=== PATIENT | female | born 1935 | race Caucasian/White ===

== ENCOUNTER 2018-03-18 08:00 | Outpatient (CLI) | payer MEDICARE, OTHER ==
[2018-03-18 19:40] LABS: CALCIUM 8.7 mg/dL (8.5-10.3); CREATININE 0.7 mg/dL (0.4-1.0)
== END 2018-03-18 23:59 | disposition home or self-care (01) ==
LOC: LAB.R 08:00
DX: R79.89 Other specified abnormal findings of blood chemistry (principal)
CPT/HCPCS: 80048

== ENCOUNTER 2018-03-29 14:40 | Outpatient (CLI) | END 2018-03-29 14:41 | disposition home or self-care (01) ==

== ENCOUNTER 2018-05-07 17:45 | Outpatient (CLI) | payer MEDICARE ==
[2018-05-07 17:13] LABS: ALBUMIN 2.9 g/dL (3.2-5.5); ALBUMIN/GLOBULIN RATIO 0.9 (1.0-2.2); BILIRUBIN,TOTAL 2.6 mg/dL (0.2-1.0); CALCIUM 8.5 mg/dL (8.5-10.3); CREATININE 0.6 mg/dL (0.4-1.0); TOTAL PROTEIN 6.2 g/dL (6.7-8.2)
== END 2018-05-07 17:46 | disposition home or self-care (01) ==
LOC: LAB.R 17:45
DX: K74.69 Other cirrhosis of liver (principal)
CPT/HCPCS: 80053; 82140

== ENCOUNTER 2018-06-13 20:53 | Outpatient (CLI) | payer MEDICARE, MEDICAID | END 2018-06-13 20:54 | disposition critical access hospital (66) | LOC: EMS 20:53 | PROVIDERS: ATTEND Surgery | DX: S09.90XA Unspecified injury of head, initial encounter (principal); M54.2 Cervicalgia; R07.9 Chest pain, unspecified; W18.30XA Fall on same level, unspecified, initial encounter; Y92.121 Bathroom in nursing home as the place of occurrence of the external cause | CPT/HCPCS: A0425; A0427 ==

== ENCOUNTER 2018-06-13 21:00 | Emergency (ER) | payer MEDICARE ==
[2018-06-13 21:24] LABS: BASOPHILS % (AUTO) 0.4 %; EOSINOPHILS # (AUTO) 0.2 10^3/uL (0.0-0.7); EOSINOPHILS % (AUTO) 2.4 %; HGB - HEMOGLOBIN 14.2 g/dL (12.0-16.0); LYMPHOCYTES # (AUTO) 1.8 10^3/uL (1.5-3.5); LYMPHOCYTES % (AUTO) 22.4 %; MEAN CORPUSCULAR HEMOGLOBIN 31.4 pg (27.0-31.0); MEAN CORPUSCULAR HGB CONC 32.6 g/dL (32.0-36.0); MEAN CORPUSCULAR VOLUME 96.2 fL (81.0-99.0); MEAN PLATELET VOLUME 7.9 fL (7.9-10.8); MONOCYTES % (AUTO) 12.5 %; NEUTROPHILS % (AUTO) 62.3 %; PLT - PLATELET COUNT 225 10^3/uL (130-450); RED BLOOD COUNT 4.53 10^6/uL (4.20-5.40)
[2018-06-13 21:30] LABS: INR 3.8 (0.8-1.2); PT - PROTHROMBIN TIME 40.4 secs (9.9-12.6)
[2018-06-13 21:31] LABS: CALCIUM 8.8 mg/dL (8.5-10.3); CREATININE 0.7 mg/dL (0.4-1.0)
[2018-06-13] MEDS ORDERED: ACETAMINOPHEN 500 MG TABLET PO STA (21:47)
--- NOTE | 2018-06-13 21:53 | XRAY Report ---
Reason: hip pain Procedure Date: 06/13/2018 Accession Number: [id number] / [id number] Procedure: XR - Hip w/Pelvis 2-3V RT CPT Code: FULL RESULT: EXAM: RIGHT HIP AND PELVIS RADIOGRAPHY EXAM DATE: 06/13/2018 09:42 PM. HISTORY: Hip pain. COMPARISONS: None. TECHNIQUE: 1 view of the pelvis and 1 view of the hip. FINDINGS: Bones: Prior lag screw fixation of the left proximal femur. No acute fracture. Joints: Bilateral joint space narrowing, more prominent on the right with osteophytes, sclerosis and subcortical cysts. Soft Tissues: Normal. No soft tissue swelling. IMPRESSION: 1. No acute fracture or dislocation. Prior lag screw fixation of the left proximal femur. 2. Advanced bilateral hip osteoarthritis, worse on the right. RAD[facility]
--- NOTE | 2018-06-13 22:07 | CT Report ---
Reason: Fall, Head injury on coumadin Procedure Date: 06/13/2018 Accession Number: [id number] / [id number] Procedure: CT - Cervical Spine W/O CPT Code: FULL RESULT: EXAM: CT CERVICAL SPINE WITHOUT CONTRAST DATE: 06/13/2018 09:44 PM. HISTORY: Fall, head injury on coumadin. COMPARISONS: None. TECHNIQUE: Thin-section axial images were acquired of the cervical spine without contrast. Post-processing: Coronal and sagittal reformats. Other: None. In accordance with CT protocol optimization, one or more of the following dose reduction techniques were utilized for this exam: automated exposure control, adjustment of mA and/or KV based on patient size, or use of iterative reconstructive technique. FINDINGS: Alignment: No scoliosis or spondylolisthesis. Bones: No fracture or bone lesion. Interspace Levels/Facets: C1-C2: Unremarkable. C2-C3: Facet hypertrophy without significant stenosis. C3-C4: Disk space narrowing and facet hypertrophy without significant stenosis. C4-C5: Disk space narrowing with minimal posterior osteophytes and facet hypertrophy without significant stenosis. C5-C6: Minimal posterior osteophytes with minimal bilateral foraminal stenosis. C6-C7: Disk space narrowing with facet hypertrophy without significant stenosis. C7-T1: Facet hypertrophy without significant stenosis. Other: Left-sided pacemaker wires. Atherosclerosis. IMPRESSION: Multilevel degenerative disk disease without evidence of cervical spine fracture. [facility]
[2018-06-13] MEDS ORDERED: PHYTONADIONE INJ (ADULT) 10 MG in SODIUM CHLORIDE 0.9% 50 ML IV ONE (22:08)
[2018-06-13] MEDS ORDERED: PROTHROMBIN COMPLEX CONC 500 UNIT VIAL IVP STA (22:09)
--- NOTE | 2018-06-13 22:09 | CT Report ---
Reason: Fall, Head injury on coumadin Procedure Date: 06/13/2018 Accession Number: [id number] / [id number] Procedure: CT - Head W/O CPT Code: FULL RESULT: EXAM: CT HEAD EXAM DATE: 06/13/2018 09:43 PM. CLINICAL HISTORY: Fall, head injury on coumadin. COMPARISON: None. TECHNIQUE: Multiaxial CT images were obtained from the foramen magnum to the vertex. Reformats: Coronal IV contrast: None. In accordance with CT protocol optimization, one or more of the following dose reduction techniques were utilized for this exam: automated exposure control, adjustment of mA and/or KV based on patient size, or use of iterative reconstructive technique. FINDINGS: Parenchyma: Diffuse cerebral atrophy with moderate low density in the deep white matter. Old left occipital infarct. No intra-axial hemorrhage. Extraaxial Spaces: Cerebral atrophy with right parietal hyperdensity measuring 3 mm (2, 29; 5, 25). Ventricles: Normal in size and position. Sinuses and Orbits: Imaged paranasal sinuses, orbits, and mastoids show no significant abnormality. Bones: No evidence of fracture or calvarial defect. Other: Left parietal scalp hematoma. Status post bilateral lens surgery. IMPRESSION: 1. Amorphous slight hyperdensity in the right parietal extra-axial space, consistent with a small area of subarachnoid hemorrhage. 2. Left parietal scalp hematoma. 3. 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 RAD[facility] The above findings were discussed with Leroy Cabrera by Dr. Jarrett Hernandez at 22:08 hrs on 06/13/18.
--- NOTE | 2018-06-13 22:36 | ED Physician Documentation ---
PD HPI HEAD INJURY - Stated complaint Stated Complaint: GLF - HEADACHE - Chief complaint Chief Complaint: Trauma Hd/Nk - History obtained from History obtained from: Family, EMS - Additional information Additional information: 82-year-old female was brought to the emergency department for evaluation of a head injury which occurred just prior to arrival. The patient slipped and fell and struck the back of her head. No reported loss of consciousness or laceration. No injury to her chest, abdomen or extremities. Symptoms are described as moderate. The patient is on Coumadin. No other associated symptoms. Symptoms are described as moderate Review of Systems Unable to obtain: Dementia, Other (Patient is able to give some information but the history is limited secondary to her dementia) Constitutional: denies: Fever Cardiac: denies: Chest pain / pressure, Palpitations Musculoskeletal: reports: Neck pain Neurologic: reports: Headache, Head injury PD PAST MEDICAL HISTORY - Past Medical History Past Medical History: Yes Cardiovascular: Congestive heart failure, Hypertension, High cholesterol, Coronary artery disease, Deep vein thrombosis, Atrial fibrillation Neuro: Alzhiemer's, Dementia Endocrine/Autoimmune: HyPOthyroidism GI: Cirrhosis Psych: Depression - Allergies Allergies/Adverse Reactions: Allergies Allergy/AdvReac Type Severity Reaction Status Date / Time bumetanide Allergy Unknown Verified 06/13/18 21:15 carisoprodol Allergy Unknown Verified 06/13/18 21:15 digoxin Allergy Unknown Verified 06/13/18 21:15 flecainide Allergy Unknown Verified 06/13/18 21:15 ibuprofen Allergy Unknown Verified 06/13/18 21:15 lactose Allergy Unknown Verified 06/13/18 21:15 Penicillins Allergy Unknown Verified 06/13/18 21:15 quinidine Allergy Unknown Verified 06/13/18 21:15 Quinolones Allergy Unknown Verified 06/13/18 21:15 Sulfa (Sulfonamide Allergy Unknown Verified 06/13/18 21:15 Antibiotics) verapamil Allergy Unknown Verified 06/13/18 21:15 - Social History Does the pt smoke?: No Smoking Status: Never smoker Does the pt drink ETOH?: No Does the pt have substance abuse?: No - Immunizations Immunizations are current?: No Immunizations: TDAP >10years/unknown - POLST Patient has POLST: Yes PD ED PE NORMAL - General General: Other (The patient is alert and oriented and following commands) - HEENT HEENT: Other (The patient has a hematoma on the back of the head, there is no laceration or active bleeding. No crepitus) - Neck Neck: Other (The patient is in a cervical collar and unable to be cleared secondary to her age, dementia and injury) - Cardiac Cardiac: Other (Irregular rhythm) - Respiratory Respiratory: No respiratory distress - Abdomen Abdomen: Soft, Non tender - Derm Derm: Normal color - Extremities Extremities: No deformity, No tenderness to palpate - Neuro Neuro: No motor deficit, Normal speech, Other (The patient is alert, follows commands and has no acute focal deficit) Eye Opening: Spontaneous Motor: Obeys Commands Verbal: Confused GCS Score: 14 - Psych Psych: Normal affect Results - Vitals Vitals: Vital Signs - 24 hr 06/13/18 06/13/18 06/13/18 21:00 22:05 22:39 Temperature 37.2 C Heart Rate 91 95 100 Respiratory 16 25 H 26 H Rate Blood Pressure 144/96 H 157/107 H 154/94 H O2 Saturation 93 95 96 06/13/18 06/14/18 06/14/18 23:36 01:05 01:10 Temperature 36.8 C 36.8 C Heart Rate 100 100 95 Respiratory 21 24 24 Rate Blood Pressure 141/93 H 131/90 H 136/76 H O2 Saturation 93 06/14/18 06/14/18 06/14/18 01:21 01:30 01:31 Temperature 36.8 C 36.7 C Heart Rate 95 97 90 Respiratory 21 21 22 Rate Blood Pressure 129/83 H 122/87 H 123/87 H O2 Saturation 97 06/14/18 06/14/18 02:30 03:27 Temperature 36.7 C Heart Rate 101 H 90 Respiratory 24 19 Rate Blood Pressure 121/79 136/86 H O2 Saturation 100 96 Oxygen O2 Source Room air - Labs Labs: Laboratory Tests 06/13/18 06/13/18 06/13/18 21:10 21:10 21:10 WBC 8.0 RBC 4.53 Hgb 14.2 Hct 43.5 MCV 96.2 MCH 31.4 H MCHC 32.6 RDW 20.0 H Plt Count 225 MPV 7.9 Neut # (Auto) 5.0 Lymph # (Auto) 1.8 [place] # (Auto) 1.0 Eos # (Auto) 0.2 Baso # (Auto) 0.0 Absolute Nucleated RBC 0.01 Nucleated RBC % 0.2 PT 40.4 H INR 3.8 H APTT 43.2 H Sodium 136 Potassium 3.6 Chloride 100 L Carbon Dioxide 29 Anion Gap 7.0 BUN 10 Creatinine 0.7 Estimated GFR (MDRD) 80 L Glucose 112 H Calcium 8.8 Blood Type Blood Type Recheck 06/13/18 06/14/18 06/14/18 21:10 00:10 02:50 WBC RBC Hgb Hct MCV MCH MCHC RDW Plt Count MPV Neut # (Auto) Lymph # (Auto) [place] # (Auto) Eos # (Auto) Baso # (Auto) Absolute Nucleated RBC Nucleated RBC % PT 24.6 H INR 2.2 H APTT 37.1 H Sodium Potassium Chloride Carbon Dioxide Anion Gap BUN Creatinine Estimated GFR (MDRD) Glucose Calcium Blood Type A POSITIVE Blood Type Recheck A POSITIVE - Rads (name of study) CT HEAD Radiology: Final report received (Addendum to compare study 11/13/2017 exam. Prior exam demonstrated small hyperdense right parietal extra-axial focus concerning for subarachnoid hemorrhage. On current study there is a less prominent 4 mm hyperdense focus in this location ( series 6, image 24) which may represent calcification or decreased small focus of hemorrhage. There is no new abnormality. ) PD MEDICAL DECISION MAKING - ED course ED course: 22:52 PM The case was discussed with neurosurgery Dr. Ambrocio at [facility]. The patient's past medical history, current medications, lab findings, presentation and CT findings were discussed. He independently reviewed the CT scan. Since, the patient's subarachnoid is small he recommends reversing the patient's anticoagulation and repeating a CT scan in 4 hours. The patient's Repeat CT scan 4 hours later showed improvement of the subarachnoid hemorrhage. The patient's Coumadin was corrected with vitamin K, K Centra and FFP. Per the neurosurgery service the patient should be discharged back to her facility and follow-up with primary care. I recommended that the patient stop her anticoagulation, the patient should follow-up with primary care for reevaluation and for them to determine whether or not the patient should restart anticoagulation at a later date. The patient will be discharged back to her halfway facility. The patient is in stable condition and appropriate for discharge at this time. - Critical Care Time(min): 35 Time Includes: Direct patient care, Review records, Reassess patient, Document care, Coordinate care, Medical consult, Family consult for tx dec Data interpretation: Labs - Sepsis Event Vital Signs: Vital Signs - 24 hr 06/13/18 06/13/18 06/13/18 21:00 22:05 22:39 Temperature 37.2 C Heart Rate 91 95 100 Respiratory 16 25 H 26 H Rate Blood Pressure 144/96 H 157/107 H 154/94 H O2 Saturation 93 95 96 06/13/18 06/14/18 06/14/18 23:36 01:05 01:10 Temperature 36.8 C 36.8 C Heart Rate 100 100 95 Respiratory 21 24 24 Rate Blood Pressure 141/93 H 131/90 H 136/76 H O2 Saturation 93 06/14/18 06/14/18 06/14/18 01:21 01:30 01:31 Temperature 36.8 C 36.7 C Heart Rate 95 97 90 Respiratory 21 21 22 Rate Blood Pressure 129/83 H 122/87 H 123/87 H O2 Saturation 97 06/14/18 06/14/18 02:30 03:27 Temperature 36.7 C Heart Rate 101 H 90 Respiratory 24 19 Rate Blood Pressure 121/79 136/86 H O2 Saturation 100 96 Oxygen O2 Source Room air Departure - Departure Disposition: 01 Home, Self Care Clinical Impression: SAH (subarachnoid hemorrhage) Scalp hematoma Qualifiers: Encounter type: initial encounter Qualified Code(s): S00.03XA - Contusion of scalp, initial encounter Fall Qualifiers: Encounter type: initial encounter Qualified Code(s): W19.XXXA - Unspecified fall, initial encounter Dementia Qualifiers: Dementia type: unspecified type Dementia behavioral disturbance: with behavioral disturbance Qualified Code(s): F03.91 - Unspecified dementia with behavioral disturbance Condition: Fair Instructions: Hemorrhage Intracranial Ch Comments: Please stop taking your Coumadin. Please follow-up with your primary care doctor in 1-2 days for recheck. Please ask your primary care doctor to reevaluate when you should start anticoagulants again or if you should start anticoagulants again. Please return to the emergency department immediately for worsening symptoms or any concerns
[2018-06-14 03:03] LABS: INR 2.2 (0.8-1.2); PT - PROTHROMBIN TIME 24.6 secs (9.9-12.6)
--- NOTE | 2018-06-14 03:33 | CT Report ---
Reason: head injury Procedure Date: 06/14/2018 Accession Number: [id number] / [id number] Procedure: CT - Head W/O CPT Code: FULL RESULT: EXAM: CT HEAD EXAM DATE: 06/14/2018 03:14 AM. CLINICAL HISTORY: Head injury. COMPARISON: None. TECHNIQUE: Multiaxial CT images were obtained from the foramen magnum to the vertex. Reformats: Sagittal and coronal. IV contrast: None. In accordance with CT protocol optimization, one or more of the following dose reduction techniques were utilized for this exam: automated exposure control, adjustment of mA and/or KV based on patient size, or use of iterative reconstructive technique. FINDINGS: Parenchyma: No intraparenchymal hemorrhage. No evidence of mass, midline shift, or CT findings of acute infarction. There are areas of low density involving white matter bilateral cerebral hemispheres. There is a low-density band extending to cortex in the left occipital lobe. Extraaxial Spaces: Diffuse prominence. No subdural or epidural collections identified. Ventricles: Mild enlargement. No mass-effect. Sinuses and Orbits: Imaged paranasal sinuses, orbits, and mastoids show no significant abnormality. Bones: No evidence of fracture or calvarial defect. Other: There is a moderate sized left parietal scalp hematoma.. IMPRESSION: No acute intracranial process. [facility] ADDENDUM: 06/14/18 03:57 Addendum to compare study 11/13/2017 exam. Prior exam demonstrated small hyperdense right parietal extra-axial focus concerning for subarachnoid hemorrhage. On current study there is a less prominent 4 mm hyperdense focus in this location ( series 6, image 24) which may represent calcification or decreased small focus of hemorrhage. There is no new abnormality. Above results discussed with Dr. Cabrera at time of addendum.
[2018-06-14 04:16] VITALS: BP 132/74
== END 2018-06-14 04:55 | disposition home or self-care (01) ==
LOC: EDUNIT# → ED 21:00
DX: S00.03XA Contusion of scalp, initial encounter (principal); S06.6X9A Traumatic subarachnoid hemorrhage with loss of consciousness of unspecified duration, initial encounter; W18.30XA Fall on same level, unspecified, initial encounter; Y92.121 Bathroom in nursing home as the place of occurrence of the external cause; G30.9 Alzheimer's disease, unspecified; F02.80 Dementia in other diseases classified elsewhere, unspecified severity, without behavioral disturbance, psychotic disturbance, mood disturbance, and anxiety; I11.0 Hypertensive heart disease with heart failure; I50.9 Heart failure, unspecified; I25.10 Atherosclerotic heart disease of native coronary artery without angina pectoris; I48.91 Unspecified atrial fibrillation; Z79.01 Long term (current) use of anticoagulants; Z86.718 Personal history of other venous thrombosis and embolism
CPT/HCPCS: 36415; 70450; 72125; 73502; 80048; 85025; 85610; 85730; 86900; 86901; 93005; 96365; 96375; 99284; 99291; A9270; C9132; J7040; P9017

== ENCOUNTER 2018-06-14 04:48 | Outpatient (CLI) | payer MEDICARE, MEDICAID | END 2018-06-14 04:49 | disposition home or self-care (01) | LOC: EMS 04:48 | PROVIDERS: ATTEND Surgery | DX: S06.6X9A Traumatic subarachnoid hemorrhage with loss of consciousness of unspecified duration, initial encounter (principal); W19.XXXA Unspecified fall, initial encounter | CPT/HCPCS: A0425; A0428 ==

== ENCOUNTER → 2018-07-27 | Outpatient (CLI) | payer OTHER, MEDICAID ==
[2018-07-27 13:44] LABS: ALBUMIN 3.3 g/dL (3.2-5.5); ALBUMIN/GLOBULIN RATIO 0.8 (1.0-2.2); BILIRUBIN,TOTAL 2.1 mg/dL (0.2-1.0); CALCIUM 8.7 mg/dL (8.5-10.3); CREATININE 0.4 mg/dL (0.4-1.0); TOTAL PROTEIN 7.6 g/dL (6.7-8.2)
== END ==
LOC: LAB.R 08:00
DX: I44.0 Atrioventricular block, first degree (principal); I48.2 Chronic atrial fibrillation; I25.2 Old myocardial infarction
CPT/HCPCS: 80053

== ENCOUNTER 2018-09-27 10:37 | Outpatient (CLI) | payer MEDICARE, MEDICAID | END 2018-09-27 10:38 | disposition critical access hospital (66) | LOC: EMS 10:37 | PROVIDERS: ATTEND Surgery | DX: R51 Headache (principal); R29.6 Repeated falls | CPT/HCPCS: A0425; A0429 ==

== ENCOUNTER 2018-09-27 10:41 | Emergency (ER) | payer MEDICARE, MEDICAID ==
--- NOTE | 2018-09-27 11:33 | CT Report ---
Reason: LIU hx subdural Procedure Date: 09/27/2018 Accession Number: [id number] / [id number] Procedure: CT - Head W/O CPT Code: FULL RESULT: EXAM: CT HEAD EXAM DATE: 09/27/2018 11:26 AM. CLINICAL HISTORY: Headache, history of subdural. COMPARISON: HEAD W/O 06/14/2018 3:14 AM. TECHNIQUE: Multiaxial CT images were obtained from the foramen magnum to the vertex. Reformats: Sagittal and coronal. IV contrast: None. In accordance with CT protocol optimization, one or more of the following dose reduction techniques were utilized for this exam: automated exposure control, adjustment of mA and/or KV based on patient size, or use of iterative reconstructive technique. FINDINGS: Parenchyma: No acute intraparenchymal hemorrhage. No evidence of mass, midline shift. Blount-white differentiation is distinct. Left occipital lobe distribution encephalomalacia is stable. Extraaxial Spaces: Normal for age. No subdural or epidural collections identified. Ventricles: Normal in size and position. Sinuses and Orbits: Imaged paranasal sinuses, orbits, and mastoids show no significant abnormality. Bones: No evidence of fracture or calvarial defect. Other: None. IMPRESSION: No acute intracranial hemorrhage. RADIA
--- NOTE | 2018-09-27 11:36 | CT Report ---
Reason: FALL, NECK PAIN Procedure Date: 09/27/2018 Accession Number: [id number] / [id number] Procedure: CT - Cervical Spine W/O CPT Code: FULL RESULT: EXAM: CT CERVICAL SPINE WITHOUT CONTRAST DATE: 09/27/2018 11:26 AM. HISTORY: Fall, neck pain. COMPARISONS: HEAD W/O 06/14/2018 3:14 AM. TECHNIQUE: Thin-section axial images were acquired of the cervical spine without contrast. Post-processing: Coronal and sagittal reformats. Other: None. In accordance with CT protocol optimization, one or more of the following dose reduction techniques were utilized for this exam: automated exposure control, adjustment of mA and/or KV based on patient size, or use of iterative reconstructive technique. FINDINGS: Alignment: No scoliosis or spondylolisthesis. Bones: No fracture or bone lesion. Interspace Levels/Facets: There is multilevel loss of disk space height with osteophytosis and multilevel facet arthropathy. Degenerative changes are most pronounced from C4 through C6. Musculature: Normal. No fatty atrophy. Other: The paravertebral and prevertebral soft tissues are unremarkable. The lung apices are clear. IMPRESSION: No acute osseous injury to the cervical spine. RADIA
--- NOTE | 2018-09-27 12:46 | ED Physician Documentation ---
History of Present Illness - Stated complaint Stated Complaint: LIU - Chief complaint Chief Complaint: Neuro - Additonal information Additional information: hx from family 82 f feel in Sept had a subdural on coumadin txed conservatively off coumadin lives in a facility now has had LIU and neck pain since the fall home for the holiday sig stress complaining of inc LIU no new fall no fever no CO exposure Review of Systems Constitutional: denies: Fever, Chills Cardiac: denies: Chest pain / pressure Respiratory: denies: Dyspnea GI: denies: Abdominal Pain Musculoskeletal: reports: Neck pain Neurologic: reports: Headache. denies: Head injury (none new) Endocrine: denies: Easy bruising / bleeding (not any more) Immunocompromised: denies: Immunocompromised PD PAST MEDICAL HISTORY - Past Medical History Cardiovascular: Congestive heart failure, Hypertension, High cholesterol, Coronary artery disease, Deep vein thrombosis, Atrial fibrillation Neuro: Alzhiemer's, Dementia Endocrine/Autoimmune: HyPOthyroidism GI: Cirrhosis Psych: Depression - Present Medications Home Medications: Ambulatory Orders Medication Instructions Recorded Confirmed Furosemide 09/27/18 Lactulose 09/27/18 Levothyroxine Sodium 09/27/18 Loperamide HCl [Loperamide] 09/27/18 09/27/18 Metoprolol Succinate 09/27/18 Sertraline [Zoloft] 09/27/18 - Allergies Allergies/Adverse Reactions: Allergies Allergy/AdvReac Type Severity Reaction Status Date / Time bumetanide Allergy Unknown Verified 09/27/18 10:54 carisoprodol Allergy Unknown Verified 09/27/18 10:54 digoxin Allergy Unknown Verified 09/27/18 10:54 flecainide Allergy Unknown Verified 09/27/18 10:54 ibuprofen Allergy Unknown Verified 09/27/18 10:54 lactose Allergy Unknown Verified 09/27/18 10:54 Penicillins Allergy Unknown Verified 09/27/18 10:54 quinidine Allergy Unknown Verified 09/27/18 10:54 Quinolones Allergy Unknown Verified 09/27/18 10:54 Sulfa (Sulfonamide Allergy Unknown Verified 09/27/18 10:54 Antibiotics) verapamil Allergy Unknown Verified 09/27/18 10:54 - Social History Does the pt smoke?: No Smoking Status: Never smoker Does the pt drink ETOH?: No Does the pt have substance abuse?: No - Immunizations Immunizations are current?: No Immunizations: TDAP >10years/unknown - POLST Patient has POLST: Yes PD ED PE NORMAL - Vitals Vital signs reviewed: Yes - HEENT HEENT: Atraumatic, PERRL - Neck Neck: No: No bony TTP (diffuse TTP) - Cardiac Cardiac: RRR - Respiratory Respiratory: No respiratory distress - Neuro Neuro: product scientist 2-12 intact, No motor deficit, No sensory deficit. No: Alert and oriented X 3 (confused - seem to be baseline ) Eye Opening: Spontaneous Motor: Obeys Commands Verbal: Confused GCS Score: 14 Results - Vitals Vitals: Vital Signs - 24 hr 09/27/18 09/27/18 09/27/18 10:50 12:53 13:25 Temperature 36.8 C 36.6 C 36.5 C Heart Rate 94 78 78 Respiratory 16 17 12 Rate Blood Pressure 115/76 116/74 118/71 O2 Saturation 94 99 100 Oxygen O2 Source Room air - Rads (name of study) CTH Radiology: See rad report (no acute) CT CS Radiology: See rad report (no acute) Departure - Departure Disposition: 01 Home, Self Care Clinical Impression: Neck pain Headache Qualifiers: Headache type: unspecified Headache chronicity pattern: unspecified pattern Intractability: not intractable Qualified Code(s): R51 - Headache Condition: Good Instructions: ED Cephalgia Unspecified Follow-Up: Max James DO [Primary Care Provider] - Comments: Thankfully the CT scans today do not show any new injuries or bleeding. And you history and exam do not indicate a concern for meningitis or sinusitis carbon monoxide or other dangerous cause for the pain. I think it is safe for you to go home. Recommend tylenol as needed for the pain.Follow up with your PMD for a recheck Return if worse over the holidays Discharge Date/Time: 09/27/18 13:25
[2018-09-27] MEDS ORDERED: ACETAMINOPHEN 325 MG TABLET PO STA (12:47)
[2018-09-27 14:11] VITALS: BP 118/71
== END 2018-09-27 13:25 | disposition home or self-care (01) ==
LOC: EDBD → EDUNIT# → ED 10:41
DX: R51 Headache (principal); M54.2 Cervicalgia; I10 Essential (primary) hypertension; I48.91 Unspecified atrial fibrillation
CPT/HCPCS: 70450; 72125; 99283; A9270

== ENCOUNTER 2018-12-17 14:01 | Emergency (ER) | payer MEDICARE, MEDICAID ==
[2018-12-17 14:12] VITALS: BP 111/89
[2018-12-17 16:14] LABS: BASOPHILS # (AUTO) 0.1 10^3/uL (0.0-0.1); BASOPHILS % (AUTO) 0.6 %; EOSINOPHILS # (AUTO) 0.2 10^3/uL (0.0-0.7); EOSINOPHILS % (AUTO) 2.3 %; HGB - HEMOGLOBIN 17.6 g/dL (12.0-16.0); LYMPHOCYTES # (AUTO) 3.1 10^3/uL (1.5-3.5); LYMPHOCYTES % (AUTO) 36.4 %; MEAN CORPUSCULAR HEMOGLOBIN 32.2 pg (27.0-31.0); MEAN CORPUSCULAR HGB CONC 32.6 g/dL (32.0-36.0); MEAN CORPUSCULAR VOLUME 98.9 fL (81.0-99.0); MEAN PLATELET VOLUME 8.3 fL (7.9-10.8); MONOCYTES # (AUTO) 0.8 10^3/uL (0.0-1.0); MONOCYTES % (AUTO) 9.5 %; NEUTROPHILS # (AUTO) 4.4 10^3/uL (1.5-6.6); NEUTROPHILS % (AUTO) 51.2 %; PLT - PLATELET COUNT 203 10^3/uL (130-450); RED BLOOD COUNT 5.45 10^6/uL (4.20-5.40); RED CELL DISTRIBUTION WIDTH 14.9 % (12.0-15.0); WHITE BLOOD COUNT 8.6 x10^3/uL (4.8-10.8)
[2018-12-17 16:32] LABS: ALBUMIN 4.7 g/dL (3.2-5.5); ALBUMIN/GLOBULIN RATIO 1.2 (1.0-2.2); BILIRUBIN,TOTAL 1.3 mg/dL (0.2-1.0); CREATININE 0.8 mg/dL (0.4-1.0); TOTAL PROTEIN 8.5 g/dL (6.7-8.2)
== END 2018-12-17 17:07 | disposition left against medical advice (07) ==
LOC: ED 14:01
DX: R61 Generalized hyperhidrosis (principal); Z53.21 Procedure and treatment not carried out due to patient leaving prior to being seen by health care provider
CPT/HCPCS: 36415; 80053; 83690; 84436; 84443; 84481; 85025

== ENCOUNTER 2019-04-16 13:57 | Emergency (ER) | payer MEDICARE, MEDICAID ==
[2019-04-16] MEDS ORDERED: HYDROcod/ACETAM 5/325 MG TABLET PO STA (14:19)
--- NOTE | 2019-04-16 14:21 | ED Physician Documentation ---
PD HPI MAJOR TRAUMA - Stated complaint Stated Complaint: GLF - Chief complaint Chief Complaint: Trauma Ch/Bk - History obtained from History obtained from: Patient, Family (son) - History of Present Illness Mechanism of injury: Fell (Much of the history is from the son because of some dementia. She had a slip and fall last night without injury but it sounds like as he was pulling her up they felt pop in the ribs on the left and she still has persistent moderate pain there despite taking tramadol which she does daily for her hip. No other injury.) Review of Systems Unable to obtain: Dementia PD PAST MEDICAL HISTORY - Past Medical History Cardiovascular: Congestive heart failure, Hypertension, High cholesterol, Coronary artery disease, Deep vein thrombosis, Atrial fibrillation Neuro: Alzhiemer's, Dementia Endocrine/Autoimmune: HyPOthyroidism GI: Cirrhosis Psych: Depression - Past Surgical History Past Surgical History: Yes - Present Medications Home Medications: Ambulatory Orders Medication Instructions Recorded Confirmed Furosemide 20 mg PO DAILY 09/27/18 Lactulose 1 09/27/18 Loperamide HCl [Loperamide] 09/27/18 09/27/18 Metoprolol Succinate 50 mg PO DAILY 09/27/18 Sertraline [Zoloft] 50 mg PO DAILY 09/27/18 Spironolactone 25 mg PO 12/17/18 12/17/18 Thyroid,Pork [[place] Thyroid] 120 mg PO 12/17/18 12/17/18 Tramadol HCl 50 mg PO 12/17/18 12/17/18 Hydrocodone/Acetaminophen 1 - 2 each PO Q6H PRN #14 tablet 04/16/19 [Hydrocodon-Acetaminophen 5-325] - Allergies Allergies/Adverse Reactions: Allergies Allergy/AdvReac Type Severity Reaction Status Date / Time bumetanide Allergy Unknown Verified 04/16/19 14:04 carisoprodol Allergy Unknown Verified 04/16/19 14:04 digoxin Allergy Unknown Verified 04/16/19 14:04 flecainide Allergy Unknown Verified 04/16/19 14:04 ibuprofen Allergy Unknown Verified 04/16/19 14:04 lactose Allergy Unknown Verified 04/16/19 14:04 Penicillins Allergy Unknown Verified 04/16/19 14:04 quinidine Allergy Unknown Verified 04/16/19 14:04 Quinolones Allergy Unknown Verified 04/16/19 14:04 Sulfa (Sulfonamide Allergy Unknown Verified 04/16/19 14:04 Antibiotics) verapamil Allergy Unknown Verified 04/16/19 14:04 - Social History Does the pt smoke?: No Smoking Status: Never smoker Does the pt drink ETOH?: No Does the pt have substance abuse?: No - Immunizations Immunizations are current?: No Immunizations: TDAP >10years/unknown - POLST Patient has POLST: Yes PD ED PE NORMAL - Vitals Vital signs reviewed: Yes - General General: Other (He is alert and oriented to person and place but not time, vague recollection of the events about the fall last night. Appropriate son at the bedside.) - HEENT HEENT: PERRL, EOMI - Neck Neck: Supple, no meningeal sign, No bony TTP - Cardiac Cardiac: RRR, No murmur - Respiratory Respiratory: No respiratory distress, Clear bilaterally, Other (Quite tender around rib 10, mid to anterior axillary line on the left) - Abdomen Abdomen: Soft, Non tender - Extremities Extremities: No edema, No calf tenderness / cord - Neuro Neuro: No motor deficit, No sensory deficit Eye Opening: Spontaneous Motor: Obeys Commands Results - Vitals Vitals: Vital Signs - 24 hr 04/16/19 14:01 Temperature 36.1 C L Heart Rate 101 H Respiratory 16 Rate Blood Pressure 111/84 H O2 Saturation 97 Oxygen O2 Source Room air - Rads (name of study) L ribs and chest Radiology: EMP read contemporaneously (NAD) Departure - Departure Disposition: 01 Home, Self Care Clinical Impression: Contusion of chest wall Qualifiers: Encounter type: initial encounter Laterality: left Qualified Code(s): S20.212A - Contusion of left front wall of thorax, initial encounter Condition: Good Record reviewed to determine appropriate education?: Yes Health Concerns: Chest wall injury, possible occult rib fracture Plan of Treatment: Do not drink or drive while taking narcotic pain medication. Note that many narcotic pain relievers also contain Tylenol/acetaminophen. Please ensure that your total dose of acetaminophen from all sources does not exceed 3 g (3000 mg) per day. You may get constipated while on this medication. Take a stool softener such as Colace twice a day while you are on it. Also add an avnv-ran-bphpdtf laxative such as senna or MiraLAX on any day that you do not have a bowel movement. If you received a narcotic pain medication or sedative while in the emergency department, do not drive for the next 24 hours. Care Goals: Pain control Assessment: as above Instructions: ED Contusion Chest Wall Prescriptions: Hydrocodone/Acetaminophen [Hydrocodon-Acetaminophen 5-325] 1 - 2 each PO Q6H PRN #14 tablet PRN Reason: pain Comments: Call your doctor to arrange a follow-up appointment, make the next available appointment. In the interim, return anytime if worse or if new symptoms develop. Do not drink or drive while taking narcotic pain medication. Note that many narcotic pain relievers also contain Tylenol/acetaminophen. Please ensure that your total dose of acetaminophen from all sources does not exceed 3 g (3000 mg) per day. You may get constipated while on this medication. Take a stool softener such as Colace twice a day while you are on it. Also add an isqr-mzr-lgwldsg laxative such as senna or MiraLAX on any day that you do not have a bowel movement. If you received a narcotic pain medication or sedative while in the emergency department, do not drive for the next 24 hours.
--- NOTE | 2019-04-16 14:50 | XRAY Report ---
Reason: rib inj Procedure Date: 04/16/2019 Accession Number: [id number] / [id number] Procedure: XR - Ribs w/PA Chest LT CPT Code: FULL RESULT: EXAM: LEFT RIB RADIOGRAPHY EXAM DATE: 04/16/2019 02:38 PM. CLINICAL HISTORY: Rib inj. COMPARISON: None. TECHNIQUE: 1 view of the chest and 2 views of the ribs. FINDINGS: Bones: Normal. No fracture or bone lesion. Lungs: No focal opacities. No pneumothorax. No pleural effusions. Mediastinum: Triple lead AICD device projects over left chest wall with mild cardiomegaly. Other: None. IMPRESSION: No acute displaced rib fracture. No pneumothorax. No acute cardiopulmonary process. Mild cardiomegaly. RADIA
[2019-04-16 15:12] VITALS: BP 135/94
== END 2019-04-16 15:12 | disposition home or self-care (01) ==
LOC: ED 13:57
DX: S20.212A Contusion of left front wall of thorax, initial encounter (principal); W01.0XXA Fall on same level from slipping, tripping and stumbling without subsequent striking against object, initial encounter; Y93.89 Activity, other specified; Y92.003 Bedroom of unspecified non-institutional (private) residence as the place of occurrence of the external cause; G30.9 Alzheimer's disease, unspecified; I10 Essential (primary) hypertension
CPT/HCPCS: 71101; 99283; 99284; A9270

== ENCOUNTER 2019-05-18 09:56 | Outpatient (CLI) | payer MEDICARE | END 2019-05-18 09:57 | disposition critical access hospital (66) | LOC: EMS 09:56 | PROVIDERS: ATTEND Surgery | DX: R07.89 Other chest pain (principal); R53.1 Weakness | CPT/HCPCS: A0425; A0427 ==

== ENCOUNTER 2019-05-18 10:00 | Emergency (ER) | payer MEDICARE ==
[2019-05-18 10:37] LABS: BASOPHILS # (AUTO) 0.1 10^3/uL (0.0-0.1); BASOPHILS % (AUTO) 0.6 %; EOSINOPHILS # (AUTO) 0.3 10^3/uL (0.0-0.7); LYMPHOCYTES # (AUTO) 4.6 10^3/uL (1.5-3.5); LYMPHOCYTES % (AUTO) 36.7 %; MEAN CORPUSCULAR HEMOGLOBIN 32.9 pg (27.0-31.0); MEAN CORPUSCULAR HGB CONC 32.3 g/dL (32.0-36.0); MEAN CORPUSCULAR VOLUME 101.8 fL (81.0-99.0); MEAN PLATELET VOLUME 9.6 fL (7.9-10.8); MONOCYTES # (AUTO) 1.1 10^3/uL (0.0-1.0); MONOCYTES % (AUTO) 8.5 %; NEUTROPHILS # (AUTO) 6.5 10^3/uL (1.5-6.6); NEUTROPHILS % (AUTO) 51.7 %; PLT - PLATELET COUNT 262 10^3/uL (130-450); RED BLOOD COUNT 4.87 10^6/uL (4.20-5.40); RED CELL DISTRIBUTION WIDTH 12.7 % (12.0-15.0); WHITE BLOOD COUNT 12.5 x10^3/uL (4.8-10.8)
[2019-05-18 10:50] LABS: ALBUMIN 3.9 g/dL (3.2-5.5); BILIRUBIN,TOTAL 0.8 mg/dL (0.2-1.0); CALCIUM 9.6 mg/dL (8.5-10.3); CREATININE 0.8 mg/dL (0.4-1.0); TOTAL PROTEIN 7.7 g/dL (6.7-8.2)
--- NOTE | 2019-05-18 11:11 | XRAY Report ---
Reason: Chest Pain Procedure Date: 05/18/2019 Accession Number: [id number] / [id number] Procedure: XR - Chest 1 View X-Ray CPT Code: 14625 FULL RESULT: EXAM: CHEST RADIOGRAPHY EXAM DATE: 05/18/2019 10:47 AM. CLINICAL HISTORY: Chest pain. COMPARISON: RIBS W/PA CHEST LT 04/16/2019 2:22 PM. TECHNIQUE: 1 view. FINDINGS: Lungs/Pleura: No focal opacities evident. No pleural effusion. No pneumothorax. Mediastinum: Within exam limitations the cardiomediastinal silhouette is unchanged in size with aortic arch calcifications and a biventricular AICD in essentially unchanged configuration as seen. Other: None. IMPRESSION: No acute cardiopulmonary abnormality. RADIA
--- NOTE | 2019-05-18 11:28 | ED Physician Documentation ---
History of Present Illness - Stated complaint Stated Complaint: CHEST PX - Chief complaint Chief Complaint: Cardiac - History obtained from History obtained from: Patient - History of Present Illness Timing: Today Pain level max: 4 Pain level now: 0 - Additonal information Additional information: 83-year-old female states that she woke up with chest pain today. States it felt like a "stone on her chest". States that is resolved now. She states that she does not believe she has any heart problems. Does not recall having any cardiac stents or bypass. No family is currently with her. She does apparently have a history of dementia. Denies any fevers, nausea, vomiting. States she thinks that she has had abdominal surgeries, but does not know which ones. Review of Systems Constitutional: denies: Fever, Chills Throat: denies: Sore throat Respiratory: denies: Cough GI: denies: Vomiting, Diarrhea : denies: Dysuria Skin: denies: Rash Musculoskeletal: denies: Neck pain, Back pain Neurologic: denies: Headache PD PAST MEDICAL HISTORY - Past Medical History Cardiovascular: Congestive heart failure, Hypertension, High cholesterol, Coronary artery disease, Deep vein thrombosis, Atrial fibrillation Neuro: Alzhiemer's, Dementia Endocrine/Autoimmune: HyPOthyroidism GI: Cirrhosis Psych: Depression - Past Surgical History Past Surgical History: Yes - Present Medications Home Medications: Ambulatory Orders Medication Instructions Recorded Confirmed Furosemide 20 mg PO DAILY 09/27/18 Lactulose 1 09/27/18 Loperamide HCl [Loperamide] 09/27/18 09/27/18 Metoprolol Succinate 50 mg PO DAILY 09/27/18 Sertraline [Zoloft] 50 mg PO DAILY 09/27/18 Spironolactone 25 mg PO 12/17/18 12/17/18 Thyroid,Pork [[place] Thyroid] 120 mg PO 12/17/18 12/17/18 Tramadol HCl 50 mg PO 12/17/18 12/17/18 Hydrocodone/Acetaminophen 1 - 2 each PO Q6H PRN #14 tablet 04/16/19 [Hydrocodon-Acetaminophen 5-325] - Allergies Allergies/Adverse Reactions: Allergies Allergy/AdvReac Type Severity Reaction Status Date / Time bumetanide Allergy Unknown Verified 05/18/19 10:18 carisoprodol Allergy Unknown Verified 05/18/19 10:18 digoxin Allergy Unknown Verified 05/18/19 10:18 flecainide Allergy Unknown Verified 05/18/19 10:18 ibuprofen Allergy Unknown Verified 05/18/19 10:18 lactose Allergy Unknown Verified 05/18/19 10:18 Penicillins Allergy Unknown Verified 05/18/19 10:18 quinidine Allergy Unknown Verified 05/18/19 10:18 Quinolones Allergy Unknown Verified 05/18/19 10:18 Sulfa (Sulfonamide Allergy Unknown Verified 05/18/19 10:18 Antibiotics) verapamil Allergy Unknown Verified 05/18/19 10:18 - Social History Does the pt smoke?: No Smoking Status: Never smoker Does the pt drink ETOH?: No Does the pt have substance abuse?: No - Immunizations Immunizations are current?: No Immunizations: TDAP >10years/unknown - POLST Patient has POLST: Yes PD ED PE NORMAL - Vitals Vital signs reviewed: Yes - General General: No acute distress, Well developed/nourished, Other (Alert, oriented to person and place) - HEENT HEENT: Atraumatic, PERRL, Moist mucous membranes, Pharynx benign - Neck Neck: Supple, no meningeal sign - Cardiac Cardiac: RRR, Strong equal pulses - Respiratory Respiratory: No respiratory distress, Clear bilaterally - Abdomen Abdomen: Soft, Non distended, Other (Tender to palpation right upper quadrant, positive Joshi sign) - Back Back: No CVA TTP, No spinal TTP - Derm Derm: Warm and dry, No rash - Extremities Extremities: No edema, No calf tenderness / cord - Neuro Neuro: Alert and oriented X 3 - Psych Psych: Normal mood, Normal affect Results - Vitals Vitals: Vital Signs - 24 hr 05/18/19 05/18/19 05/18/19 10:00 10:59 12:30 Temperature 36.1 C L Heart Rate 92 91 99 Respiratory 16 18 18 Rate Blood Pressure 125/88 H 113/75 127/81 H O2 Saturation 96 98 99 05/18/19 14:35 Temperature 36.2 C L Heart Rate 94 Respiratory 12 Rate Blood Pressure 102/61 O2 Saturation 98 Oxygen O2 Source Room air - EKG (time done) 1006 Rate: Rate (enter#) (94) Rhythm: Atrial fibrillation [place]: Normal QRS: LVH Ischemia: Normal ST segments - Labs Labs: Laboratory Tests 05/18/19 05/18/19 05/18/19 10:32 10:32 10:32 WBC 12.5 H RBC 4.87 Hgb 16.0 Hct 49.6 H MCV 101.8 H MCH 32.9 H MCHC 32.3 RDW 12.7 Plt Count 262 MPV 9.6 Neut # (Auto) 6.5 Lymph # (Auto) 4.6 H [place] # (Auto) 1.1 H Eos # (Auto) 0.3 Baso # (Auto) 0.1 Absolute Nucleated RBC 0.00 Nucleated RBC % 0.0 Sodium 139 Potassium 4.2 Chloride 102 Carbon Dioxide 25 Anion Gap 12.0 BUN 17 Creatinine 0.8 Estimated GFR (MDRD) 68 L Glucose 119 H Calcium 9.6 Total Bilirubin 0.8 AST 27 ALT 23 Alkaline Phosphatase 117 Troponin I High Sens 17.7 H* Total Protein 7.7 Albumin 3.9 Globulin 3.8 Albumin/Globulin Ratio 1.0 Lipase 37 05/18/19 13:13 WBC RBC Hgb Hct MCV MCH MCHC RDW Plt Count MPV Neut # (Auto) Lymph # (Auto) [place] # (Auto) Eos # (Auto) Baso # (Auto) Absolute Nucleated RBC Nucleated RBC % Sodium Potassium Chloride Carbon Dioxide Anion Gap BUN Creatinine Estimated GFR (MDRD) Glucose Calcium Total Bilirubin AST ALT Alkaline Phosphatase Troponin I High Sens 15.4 H* Total Protein Albumin Globulin Albumin/Globulin Ratio Lipase - Rads (name of study) RUQ US Radiology: Prelim report reviewed, EMP read contemporaneously, See rad report (Cholelithiasis. No ultrasound evidence of acute cholecystitis. ) PD MEDICAL DECISION MAKING - ED course Complexity details: reviewed results, re-evaluated patient, considered differential, d/w patient ED course: Symptoms resolved in the emergency department. Abdomen is soft, nontender nondistended on serial exam. Possible biliary colic this morning? She does not appear to have unstable angina at this time. Negative high-sensitivity troponin x2. We will follow-up with her doctor for further care. Patient counseled regarding signs and symptoms for which I believe and urgent re-evaluation would be necessary. Patient with good understanding of and agreement to plan and is comfortable going home at this time This document was made in part using voice recognition software. While efforts are made to proofread this document, sound alike and grammatical errors may occur. Departure - Departure Disposition: Home, Self Care Clinical Impression: Biliary colic Chest pain Qualifiers: Chest pain type: unspecified Qualified Code(s): R07.9 - Chest pain, unspecified Condition: Good Instructions: ED Chest Pain Atypical Unkn Cause, ED Gallstone W Biliary Colic Follow-Up: Boone Landin MD [Primary Care Provider] - Within 1 week Comments: Return if you worsen. You do have gallstones on your Ultrasound and this may be causing her pain. Discharge Date/Time: 05/18/19 14:50
--- NOTE | 2019-05-18 13:02 | Ultrasound Report ---
Reason: RUQ abd pain Procedure Date: 05/18/2019 Accession Number: [id number] / [id number] Procedure: US - Abdomen Limited CPT Code: FULL RESULT: EXAM: ABDOMEN ULTRASOUND LIMITED, RUQ EXAM DATE: 05/18/2019 12:37 PM. CLINICAL HISTORY: Right upper quadrant abdominal pain. COMPARISON: None. TECHNIQUE: Real-time scanning was performed with static images obtained. FINDINGS: Liver: Normal in size and echotexture. The right lobe of the liver measures up to 13.1 cm. Main portal vein flow: Hepatopetal. Gallbladder: Mobile gallstones are present. The largest measures up to 2.2 cm. No gallbladder wall thickening or sonographic Joshi sign. Biliary System: CBD measures 7 mm, with smooth distal tapering. No intrahepatic or extrahepatic ductal dilatation. Other: Unremarkable appearance of the right kidney. No hydronephrosis. Right renal length measures 10.3 cm. IMPRESSION: Cholelithiasis. No ultrasound evidence of acute cholecystitis. RADIA
[2019-05-18 14:36] VITALS: BP 102/61
== END 2019-05-18 14:50 | disposition home or self-care (01) ==
LOC: EDUNIT# → ED 10:00
DX: K80.20 Calculus of gallbladder without cholecystitis without obstruction (principal); R07.9 Chest pain, unspecified; I48.91 Unspecified atrial fibrillation; I11.0 Hypertensive heart disease with heart failure; I50.9 Heart failure, unspecified; I25.10 Atherosclerotic heart disease of native coronary artery without angina pectoris; G30.9 Alzheimer's disease, unspecified; F02.80 Dementia in other diseases classified elsewhere, unspecified severity, without behavioral disturbance, psychotic disturbance, mood disturbance, and anxiety
CPT/HCPCS: 36415; 71045; 76705; 80053; 83690; 84484; 85025; 93005; 99284

== ENCOUNTER 2019-07-20 08:38 | Outpatient (CLI) | payer MEDICARE, MEDICAID ==
[2019-07-20 10:03] LABS: BILIRUBIN,URINE NEGATIVE (NEGATIVE); GLUCOSE, URINE (UA) NEGATIVE (NEGATIVE); KETONES,URINE (UA) NEGATIVE (NEGATIVE); LEUKOCYTE ESTERASE, URINE MODERATE (NEGATIVE); NITRITE,URINE NEGATIVE (NEGATIVE); OCCULT BLOOD,URINE NEGATIVE (NEGATIVE); PH,URINE 6.5 PH (5.0-7.5); PROTEIN,URINE NEGATIVE (NEGATIVE); UROBILINOGEN,URINE 0.2 (NORMAL) E.U./dL (NORMAL)
[2019-07-20 10:15] LABS: BACTERIA,URINE Moderate /HPF (None Seen); CLARITY,URINE HAZY (CLEAR); RBC,URINE 0-5 /HPF (0-5); SQUAMOUS EPITHELIAL CELL,UR RARE Squamous (<= Few)
== END 2019-07-20 08:39 | disposition home or self-care (01) ==
LOC: LAB 08:38
PROVIDERS: ATTEND Family Medicine
DX: R39.89 Other symptoms and signs involving the genitourinary system (principal)
CPT/HCPCS: 81001

== ENCOUNTER 2019-07-28 10:48 | Emergency (ER) | payer MEDICARE, MEDICAID ==
[2019-07-28] MEDS ORDERED: SODIUM CHLORIDE 0.9% 1,000 ML IV ONE (11:04)
[2019-07-28 11:24] LABS: BASOPHILS # (AUTO) 0.1 10^3/uL (0.0-0.1); BASOPHILS % (AUTO) 0.6 %; EOSINOPHILS # (AUTO) 0.2 10^3/uL (0.0-0.7); HGB - HEMOGLOBIN 15.4 g/dL (12.0-16.0); LYMPHOCYTES # (AUTO) 3.5 10^3/uL (1.5-3.5); LYMPHOCYTES % (AUTO) 34.1 %; MEAN CORPUSCULAR HEMOGLOBIN 31.2 pg (27.0-31.0); MEAN CORPUSCULAR HGB CONC 31.5 g/dL (32.0-36.0); MEAN CORPUSCULAR VOLUME 99.2 fL (81.0-99.0); MEAN PLATELET VOLUME 9.3 fL (7.9-10.8); MONOCYTES # (AUTO) 0.9 10^3/uL (0.0-1.0); MONOCYTES % (AUTO) 9.2 %; NEUTROPHILS # (AUTO) 5.5 10^3/uL (1.5-6.6); NEUTROPHILS % (AUTO) 53.7 %; PLT - PLATELET COUNT 218 10^3/uL (130-450); RED BLOOD COUNT 4.93 10^6/uL (4.20-5.40); RED CELL DISTRIBUTION WIDTH 13.8 % (12.0-15.0); WHITE BLOOD COUNT 10.1 x10^3/uL (4.8-10.8)
[2019-07-28 11:38] LABS: ALBUMIN 4.1 g/dL (3.2-5.5); ALBUMIN/GLOBULIN RATIO 1.3 (1.0-2.2); CALCIUM 9.3 mg/dL (8.5-10.3); CREATININE 0.9 mg/dL (0.4-1.0); TOTAL PROTEIN 7.3 g/dL (6.7-8.2)
[2019-07-28] MEDS ORDERED: ACETAMINOPHEN 325 MG TABLET PO STA (11:48)
--- NOTE | 2019-07-28 11:49 | ED Physician Documentation ---
History of Present Illness - Stated complaint Stated Complaint: ABD PX - Chief complaint Chief Complaint: Abd Pain - History obtained from History obtained from: Patient, Family - History of Present Illness Timing: Today Pain level max: 3 Pain level now: 3 - Additonal information Additional information: Patient states that she feels like she has another UTI. Pain and burning with urination. She was started on what sounds like Macrobid 3 days ago. States that she is not improving. Worse with urination. Better with rest. No fevers. No vomiting. No diarrhea. Has had constipation. Her son is concerned that she is dehydrated. Review of Systems Constitutional: denies: Fever, Chills Cardiac: denies: Chest pain / pressure Respiratory: denies: Cough GI: denies: Nausea, Vomiting, Diarrhea : reports: Dysuria, Frequency, Hesitancy Skin: denies: Rash Musculoskeletal: denies: Neck pain, Back pain Neurologic: denies: Headache PD PAST MEDICAL HISTORY - Past Medical History Cardiovascular: Congestive heart failure, Hypertension, High cholesterol, Coronary artery disease, Deep vein thrombosis, Atrial fibrillation Neuro: Alzhiemer's, Dementia Endocrine/Autoimmune: HyPOthyroidism GI: Cirrhosis Psych: Depression - Past Surgical History Past Surgical History: Yes - Present Medications Home Medications: Ambulatory Orders Medication Instructions Recorded Confirmed Furosemide 20 mg PO DAILY 09/27/18 Lactulose 1 09/27/18 Loperamide HCl [Loperamide] 09/27/18 09/27/18 Metoprolol Succinate 50 mg PO DAILY 09/27/18 Sertraline [Zoloft] 50 mg PO DAILY 09/27/18 Spironolactone 25 mg PO 12/17/18 12/17/18 Thyroid,Pork [[place] Thyroid] 120 mg PO 12/17/18 12/17/18 Tramadol HCl 50 mg PO 12/17/18 12/17/18 Hydrocodone/Acetaminophen 1 - 2 each PO Q6H PRN #14 tablet 04/16/19 [Hydrocodon-Acetaminophen 5-325] Nitrofurantoin Monohyd/M-Cryst 100 mg PO BID #10 capsule 07/28/19 [Macrobid 100 mg Capsule] - Allergies Allergies/Adverse Reactions: Allergies Allergy/AdvReac Type Severity Reaction Status Date / Time bumetanide Allergy Unknown Verified 07/28/19 10:57 carisoprodol Allergy Unknown Verified 07/28/19 10:57 digoxin Allergy Unknown Verified 07/28/19 10:57 flecainide Allergy Unknown Verified 07/28/19 10:57 ibuprofen Allergy Unknown Verified 07/28/19 10:57 lactose Allergy Unknown Verified 07/28/19 10:57 Penicillins Allergy Unknown Verified 07/28/19 10:57 quinidine Allergy Unknown Verified 07/28/19 10:57 Quinolones Allergy Unknown Verified 07/28/19 10:57 Sulfa (Sulfonamide Allergy Unknown Verified 07/28/19 10:57 Antibiotics) verapamil Allergy Unknown Verified 07/28/19 10:57 - Social History Does the pt smoke?: No Smoking Status: Never smoker Does the pt drink ETOH?: No Does the pt have substance abuse?: No - Immunizations Immunizations are current?: No Immunizations: TDAP >10years/unknown - POLST Patient has POLST: Yes PD ED PE NORMAL - Vitals Vital signs reviewed: Yes - General General: Alert and oriented X 3, No acute distress - HEENT HEENT: Pharynx benign, Other (dry lips ) - Neck Neck: Supple, no meningeal sign - Cardiac Cardiac: RRR - Respiratory Respiratory: No respiratory distress, Clear bilaterally - Abdomen Abdomen: Soft, Non tender, Non distended - Derm Derm: Warm and dry - Extremities Extremities: No edema - Neuro Neuro: Alert and oriented X 3 - Psych Psych: Normal mood, Normal affect Results - Vitals Vitals: Oxygen O2 Source Room air - Labs Labs: Microbiology 07/28/19 11:56 Urine Culture - Final Urine,Catheterized No growth Laboratory Tests 07/28/19 07/28/19 07/28/19 11:17 11:17 11:56 WBC 10.1 RBC 4.93 Hgb 15.4 Hct 48.9 H MCV 99.2 H MCH 31.2 H MCHC 31.5 L RDW 13.8 Plt Count 218 MPV 9.3 Neut # (Auto) 5.5 Lymph # (Auto) 3.5 [place] # (Auto) 0.9 Eos # (Auto) 0.2 Baso # (Auto) 0.1 Absolute Nucleated RBC 0.00 Nucleated RBC % 0.0 Sodium 139 Potassium 4.3 Chloride 102 Carbon Dioxide 30 Anion Gap 7.0 BUN 21 H Creatinine 0.9 Estimated GFR (MDRD) 60 L Glucose 119 H Calcium 9.3 Total Bilirubin 1.0 AST 29 ALT 23 Alkaline Phosphatase 108 Total Protein 7.3 Albumin 4.1 Globulin 3.2 Albumin/Globulin Ratio 1.3 Lipase 35 Urine Color YELLOW Urine Clarity CLEAR Urine pH 6.0 Ur Specific [place] 1.010 Urine Protein NEGATIVE Urine Glucose (UA) NEGATIVE Urine Ketones NEGATIVE Urine Occult Blood NEGATIVE Urine Nitrite POSITIVE H Urine Bilirubin NEGATIVE Urine Urobilinogen 0.2 (NORMAL) Ur Leukocyte Esterase NEGATIVE Urine RBC 0-5 Urine WBC 0-3 Ur Squamous Epith Cells RARE Squamous Urine Bacteria Rare Ur Microscopic Review INDICATED Urine Culture Comments INDICATED PD MEDICAL DECISION MAKING - ED course Complexity details: considered differential, d/w patient, d/w family ED course: Patient with what appears to be dehydration a UTI. Has multiple antibiotic allergies. Will treat with Macrobid. She is well-appearing, nontoxic. Afebrile. Feels better after IV fluids. No evidence of pyelonephritis or sepsis. Patient counseled regarding signs and symptoms for which I believe and urgent re-evaluation would be necessary. Patient with good understanding of and agreement to plan and is comfortable going home at this time This document was made in part using voice recognition software. While efforts are made to proofread this document, sound alike and grammatical errors may occur. Departure - Departure Disposition: 01 Home, Self Care Clinical Impression: Dehydration UTI (urinary tract infection) Qualifiers: Urinary tract infection type: acute cystitis Hematuria presence: without hematuria Qualified Code(s): N30.00 - Acute cystitis without hematuria Condition: Good Instructions: ED Dehydration, ED UTI Cystitis Female Follow-Up: Earlene Elizabeth DO [Primary Care Provider] - Within 3 Days Prescriptions: Nitrofurantoin Monohyd/M-Cryst [Macrobid 100 mg Capsule] 100 mg PO BID #10 capsule Comments: Return if you worsen. Follow-up with your doctor for further care. You need to increase your water intake as well Discharge Date/Time: 07/28/19 12:55
[2019-07-28 12:06] LABS: BILIRUBIN,URINE NEGATIVE (NEGATIVE); GLUCOSE, URINE (UA) NEGATIVE (NEGATIVE); KETONES,URINE (UA) NEGATIVE (NEGATIVE); LEUKOCYTE ESTERASE, URINE NEGATIVE (NEGATIVE); NITRITE,URINE POSITIVE (NEGATIVE); OCCULT BLOOD,URINE NEGATIVE (NEGATIVE); PROTEIN,URINE NEGATIVE (NEGATIVE); UROBILINOGEN,URINE 0.2 (NORMAL) E.U./dL (NORMAL)
[2019-07-28 12:09] LABS: CLARITY,URINE CLEAR (CLEAR)
[2019-07-28 12:21] LABS: BACTERIA,URINE Rare /HPF (None Seen); RBC,URINE 0-5 /HPF (0-5); SQUAMOUS EPITHELIAL CELL,UR RARE Squamous (<= Few)
[2019-07-28] MEDS ORDERED: PHENAZOPYRIDINE 100 MG TABLET PO STA (12:25)
[2019-07-28 12:32] VITALS: BP 136/76
== END 2019-07-28 12:55 | disposition home or self-care (01) ==
LOC: ED 10:48
DX: N30.00 Acute cystitis without hematuria (principal); E86.0 Dehydration; Z88.0 Allergy status to penicillin; Z88.1 Allergy status to other antibiotic agents; Z88.2 Allergy status to sulfonamides; I11.0 Hypertensive heart disease with heart failure; I50.9 Heart failure, unspecified; G30.9 Alzheimer's disease, unspecified; F02.80 Dementia in other diseases classified elsewhere, unspecified severity, without behavioral disturbance, psychotic disturbance, mood disturbance, and anxiety
CPT/HCPCS: 36415; 51701; 80053; 81001; 83690; 85025; 87086; 96360; 96361; 99283; 99284; A9270; 51702; 81003

== ENCOUNTER 2019-11-12 15:38 | Emergency (ER) | payer MEDICAID, MEDICARE ==
--- NOTE | 2019-11-12 16:14 | ED Physician Documentation ---
PD HPI FOCAL NEURO - Stated complaint Stated Complaint: LT ARM NUMBNESS/TINGLING, SLURRED SPEECH - Chief complaint Chief Complaint: Neuro - History obtained from History obtained from: Patient, Family - History of Present Illness Timing - onset: Today (84-year-old woman, it sounds like she had a TIA last year but says she received no work-up for. Not sure if that is true. Her memory is not great. Today about 45 minutes ago developed left arm numbness and weakness and difficulty using it was slurred speech. Now feels back to normal. She says she has not had headaches recently but the son says she has been complaining of headaches recently.) - Additional information Additional information: She has a history of A. fib status post ablation, pacemaker in place, not anticoagulated except for aspirin. Review of Systems Ten Systems: 10 systems reviewed and negative Constitutional: denies: Fever, Chills Throat: denies: Dental pain / toothache, Sore throat Cardiac: denies: Chest pain / pressure, Palpitations Respiratory: denies: Dyspnea PD PAST MEDICAL HISTORY - Past Medical History Cardiovascular: Congestive heart failure, Hypertension, High cholesterol, Coronary artery disease, Deep vein thrombosis, Atrial fibrillation Neuro: Alzhiemer's, Dementia Endocrine/Autoimmune: HyPOthyroidism GI: Cirrhosis Psych: Depression - Past Surgical History Past Surgical History: Yes - Present Medications Home Medications: Ambulatory Orders Medication Instructions Recorded Confirmed Furosemide 20 mg PO DAILY 09/27/18 11/12/19 Loperamide HCl [Loperamide] 2 mg PO DAILY PRN 09/27/18 11/12/19 Metoprolol Succinate 50 mg PO DAILY 09/27/18 11/12/19 Sertraline [Zoloft] 50 mg PO DAILY 09/27/18 11/12/19 Spironolactone 25 mg PO DAILY 12/17/18 11/12/19 Thyroid,Pork [[place]on Thyroid] 120 mg PO DAILY 12/17/18 11/12/19 Tramadol HCl 50 mg PO Q6HR PRN 12/17/18 11/12/19 Hydrocodone/Acetaminophen 1 - 2 each PO Q6H PRN #14 tablet 04/16/19 11/12/19 [Hydrocodon-Acetaminophen 5-325] Clopidogrel [Plavix] 75 mg PO DAILY #7 tablet 11/12/19 Rivaroxaban [Xarelto] 20 mg PO DAILY #7 tablet 11/12/19 - Allergies Allergies/Adverse Reactions: Allergies Allergy/AdvReac Type Severity Reaction Status Date / Time bumetanide Allergy Unknown Verified 11/12/19 19:15 carisoprodol Allergy Unknown Verified 11/12/19 19:15 digoxin Allergy Unknown Verified 11/12/19 19:15 flecainide Allergy Unknown Verified 11/12/19 19:15 ibuprofen Allergy Unknown Verified 11/12/19 19:15 lactose Allergy Unknown Verified 11/12/19 19:15 Penicillins Allergy Unknown Verified 11/12/19 19:15 quinidine Allergy Unknown Verified 11/12/19 19:15 Quinolones Allergy Unknown Verified 11/12/19 19:15 Sulfa (Sulfonamide Allergy Unknown Verified 11/12/19 19:15 Antibiotics) verapamil Allergy Unknown Verified 11/12/19 19:15 - Social History Does the pt smoke?: No Smoking Status: Never smoker Does the pt drink ETOH?: No Does the pt have substance abuse?: No - Immunizations Immunizations are current?: No Immunizations: TDAP >10years/unknown - POLST Patient has POLST: Yes PD ED PE NORMAL - Vitals Vital signs reviewed: Yes - General General: No acute distress, Well developed/nourished, Other (She is alert and cooperative, she has some memory difficulties. When asked her what month it is she says it is approaching [place]. When asked her what year it is she says it is 20 something.) - HEENT HEENT: PERRL, EOMI - Neck Neck: Supple, no meningeal sign, No bony TTP - Cardiac Cardiac: RRR, No murmur - Respiratory Respiratory: No respiratory distress, Clear bilaterally - Abdomen Abdomen: Normal bowel sounds, Soft, Non tender - Back Back: No CVA TTP, No spinal TTP - Derm Derm: Normal color, Warm and dry - Extremities Extremities: No edema, No calf tenderness / cord - Neuro Neuro: telecommunications analyst 2-12 intact, No motor deficit, No sensory deficit, Normal speech Eye Opening: Spontaneous Motor: Obeys Commands Verbal: Confused GCS Score: 14 NIHSS - Time Time: 16:05 - Level of Consciousness Level of consciousness: (0) Alert, Keenly responsive LOC Questions: (2) Answers neither correct LOC Commands: (0) Performs both correctly - Gaze Best Gaze: (0) Normal - Visual Visual: (0) No loss - Facial Palsy Facial Palsy: (0) Normal, symmetrical movement - Motor Arms (both separate) Motor Arm (right): (0) No drift Motor Arm (left): (0) No drift - Motor Legs (both separate) Motor Leg (right): (0) No drift Motor Leg (left): (0) No drift - Limb Ataxia Limb Ataxia: (0) Absent - Sensory Sensory: (0) Normal - Best Language Best Language: (0) No aphasia - Dysarthria Dysarthria: (0) Normal - Extinction and Inattention (formally neg Extinction and inattention: (0) No abnormality - Total Score/Results Total Score/Result: 2 Results - Vitals Vitals: Vital Signs - 24 hr 11/12/19 11/12/19 11/12/19 15:46 16:44 17:37 Temperature 36.5 C Heart Rate 70 70 61 Respiratory 18 18 18 Rate Blood Pressure 150/112 H 140/77 H 113/77 O2 Saturation 97 97 96 11/12/19 11/12/19 11/12/19 18:39 19:10 20:08 Temperature 36.3 C L Heart Rate 70 72 70 Respiratory 18 18 17 Rate Blood Pressure 151/82 H 169/94 H 104/85 H O2 Saturation 98 97 97 Oxygen O2 Source Room air - EKG (time done) 1619 Rate: Rate (enter#) (70) Rhythm: Paced Computer interpretation: Agree with computer - Labs Labs: Laboratory Tests 11/12/19 11/12/19 11/12/19 16:15 16:15 16:15 WBC 10.4 RBC 5.22 Hgb 16.4 H Hct 51.3 H MCV 98.3 MCH 31.4 H MCHC 32.0 RDW 14.4 Plt Count 209 MPV 9.2 Neut # (Auto) 4.8 Lymph # (Auto) 3.9 H [place] # (Auto) 1.2 H Eos # (Auto) 0.4 Baso # (Auto) 0.1 Absolute Nucleated RBC 0.00 Nucleated RBC % 0.0 PT 12.5 INR 1.1 Sodium 135 Potassium 4.2 Chloride 98 L Carbon Dioxide 29 Anion Gap 8.0 BUN 18 Creatinine 0.9 Estimated GFR (MDRD) 60 L Glucose 91 Calcium 9.2 Total Bilirubin 0.8 AST 24 ALT 19 Alkaline Phosphatase 79 Total Protein 7.7 Albumin 4.5 Globulin 3.2 Albumin/Globulin Ratio 1.4 Lipase 92 H - Rads (name of study) CTA Head and Neck Radiology: EMP read contemporaneously (See formal read, basically she has intracranial stenosis everywhere and bilateral carotid stenosis. Also subclavian stenosis.) PD MEDICAL DECISION MAKING - ED course ED course: 84-year-old woman presents with a TIA consisting of left-sided symptoms which are gone on arrival. NIH stroke scale is 2 but that is for poor memory/dementia. After the CT angiography the case was discussed by phone with Dr. Desiree Young, stroke neurologist at [facility]. We discussed the findings and discussed potentially anticoagulation, dual platelet therapy, and potential transfer for vascular intervention. She did not recommend transfer for vascular intervention given the multifocal nature of the stenoses. She did recommend dual antiplatelet therapy and anticoagulation after discussion with the patient. Her ABCD 2 score is 5. Has bled score is 5 Chads vasc2 score is 7 So basically we are in a position of equipoise for bleeding versus stroke risk. After discussion with the patient and family they opted to go ahead with dual antiplatelet therapy and anticoagulation. She had been on warfarin before and they are happy to know that there are other options now, Xarelto is chosen based on its once daily dosing and started in the emergency department along with the Plavix. Spoke with Dr. Oliver for observation, however given that no MRI is available tomorrow and she has a pacemaker anyway, this is not available and there is no echocardiogram available tomorrow and since we have already chosen to anticoagulate her, that is kind of a nonissue. As such she felt there was no medical necessity to the observation. This was discussed with the patient and family, they requested her be observed, and this was offered with the caveat that she would have to sign an ABN and they decided to take her home. Departure - Departure Disposition: 01 Home, Self Care Clinical Impression: TIA (transient ischemic attack), Intracranial vascular disease Condition: Stable Record reviewed to determine appropriate education?: Yes Instructions: ED Transient Ischemic Attack Prescriptions: Clopidogrel [Plavix] 75 mg PO DAILY #7 tablet Rivaroxaban [Xarelto] 20 mg PO DAILY #7 tablet Comments: Continue the aspirin, at the advice of the neurologist at [facility] we are also ad ding a blood thinner and an antiplatelet agent. This should all be discussed with your primary care physician within the week. Return for new or worsening symptoms.
[2019-11-12] MEDS ORDERED: IOVERSOL 320 100 ML VIAL IVP ONE ×2 (16:20→17:38)
[2019-11-12 16:21] LABS: BASOPHILS # (AUTO) 0.1 10^3/uL (0.0-0.1); BASOPHILS % (AUTO) 0.7 %; EOSINOPHILS # (AUTO) 0.4 10^3/uL (0.0-0.7); EOSINOPHILS % (AUTO) 3.8 %; HGB - HEMOGLOBIN 16.4 g/dL (12.0-16.0); LYMPHOCYTES # (AUTO) 3.9 10^3/uL (1.5-3.5); LYMPHOCYTES % (AUTO) 37.8 %; MEAN CORPUSCULAR HEMOGLOBIN 31.4 pg (27.0-31.0); MEAN CORPUSCULAR VOLUME 98.3 fL (81.0-99.0); MEAN PLATELET VOLUME 9.2 fL (7.9-10.8); MONOCYTES # (AUTO) 1.2 10^3/uL (0.0-1.0); MONOCYTES % (AUTO) 11.6 %; NEUTROPHILS # (AUTO) 4.8 10^3/uL (1.5-6.6); NEUTROPHILS % (AUTO) 45.8 %; PLT - PLATELET COUNT 209 10^3/uL (130-450); RED BLOOD COUNT 5.22 10^6/uL (4.20-5.40); RED CELL DISTRIBUTION WIDTH 14.4 % (12.0-15.0); WHITE BLOOD COUNT 10.4 x10^3/uL (4.8-10.8)
[2019-11-12 16:29] LABS: INR 1.1 (0.8-1.2); PT - PROTHROMBIN TIME 12.5 secs (9.9-12.6)
[2019-11-12 16:34] LABS: ALBUMIN 4.5 g/dL (3.2-5.5); ALBUMIN/GLOBULIN RATIO 1.4 (1.0-2.2); BILIRUBIN,TOTAL 0.8 mg/dL (0.2-1.0); CALCIUM 9.2 mg/dL (8.5-10.3); CREATININE 0.9 mg/dL (0.4-1.0); TOTAL PROTEIN 7.7 g/dL (6.7-8.2)
--- NOTE | 2019-11-12 18:11 | CT Report ---
Reason: Left sided defecits, resolved Procedure Date: 11/12/2019 Accession Number: [id number] / [id number] Procedure: CT - ANGIO NECK W CPT Code: Final Report FULL RESULT: EXAM: CT ANGIOGRAM HEAD AND NECK. CT SCAN HEAD WITHOUT AND WITH CONTRAST. EXAM DATE: 11/12/2019 05:36 PM. CLINICAL HISTORY: 84-year-old with left-sided deficits that have resolved. Evaluate for intracranial pathology or vascular pathology. COMPARISON: CT head 09/27/2018. TECHNIQUE: Routine axial helical CTA imaging was performed from the aortic arch through the [place]. Routine axial CT imaging of the head was performed prior to and following contrast administration. Reconstructions: Routine multiplanar 3D MIP reconstructions. IV contrast: Optiray 320. NASCET Criteria are used for stenosis measurements. In accordance with CT protocol optimization, one or more of the following dose reduction techniques were utilized for this exam: automated exposure control, adjustment of mA and/or KV based on patient size, or use of iterative reconstructive technique. FINDINGS: CT SCAN HEAD: Parenchyma: No acute parenchymal hemorrhage, mass, or midline shift. Small volume encephalomalacia and gliosis of the left occipital lobe similar to CT head 09/27/2018. There is mild to moderate bilateral areas of white matter hypoattenuation seen that appear similar to CT head 09/27/2018. There is no convincing CT evidence of acute infarct. Extra-axial Spaces: Normal for age. No subdural or epidural collections identified. Ventricles: Normal in size and position. Sinuses and Orbits: Changes of bilateral lens replacement. Visualized paranasal sinuses, mastoid air cells, and middle ear cavities are clear. Bones: No evidence of fracture or calvarial defect. Changes of hyperostosis frontalis internus. Other: Vascular calcifications of the cavernous and supraclinoid ICA segments. CT ANGIOGRAM HEAD AND NECK: There is atherosclerotic plaque involving the aortic arch with no areas of high-grade stenosis seen. No definite penetrating aortic ulcer. The left common carotid artery appears to arise from the right brachiocephalic artery. There is atherosclerotic plaque involving the origins of the great vessels with no definite high-grade stenosis seen. There is atherosclerotic plaque involving the left subclavian artery with area of 60-70% narrowing (series 2, image 121). There is vascular plaque at the origin of the right subclavian artery with potentially up to 50% stenosis. There is vascular plaque along the course of the right subclavian artery with less than 50% stenosis. RIGHT: Common Carotid Artery: There is vascular plaque along the course of the common carotid artery with less than 30% narrowing. No dissection. Carotid Bulb: There is moderate atherosclerotic plaque at the carotid bifurcation. Stenosis at the bifurcation by NASCET criteria: Up to 50% stenosis Internal Carotid Artery: There is vascular plaque involving the proximal cervical ICA with between 60-70% narrowing (series 2, image 251). There is tortuosity of the cervical ICA with no high-grade stenosis or definite dissection seen. There is vascular calcifications of the cavernous and supraclinoid ICA segments with less than 50% stenosis. No evidence of aneurysm along the intracranial ICA. External Carotid Artery: Unremarkable. Vertebral Artery: There is vascular plaque involving the V2 and V3 segments with no high-grade stenosis seen. There is irregularity of the intradural V4 segment of the right vertebral artery with multiple tandem segments of moderate to severe stenosis involving the very distal intradural V4 segment. No definite dissection. No aneurysm. Anterior Cerebral Artery: Atretic to absent A1 segment with normal-appearing A2 segment. There is focal mild to moderate stenosis of the A3 segment of the right GAIL. There additional multiple tandem segments of high-grade narrowing of the distal GAIL branches. No aneurysm. Middle Cerebral Artery: Patent without significant stenosis, aneurysm, or vascular malformation. Posterior Cerebral Artery: -like SASH ASSEMBLER. There is focal moderate narrowing of the proximal P2/P3 junction of the right SASH ASSEMBLER. Distal SASH ASSEMBLER branches are patent. No aneurysm. Posterior Communicating Artery: Patent. No aneurysm. LEFT: Common Carotid Artery: There is vascular plaque involving the course of the left common carotid artery with up to 50% narrowing (series 2, image 143). Carotid Bulb: There is mild to moderate atherosclerotic plaque at the carotid bifurcation. Stenosis at the bifurcation by NASCET criteria: Less than 50% stenosis Internal Carotid Artery: There is vascular plaque involving the proximal cervical ICA with area of between 60-70% stenosis (series 2, image 252). Tortuosity of the cervical ICA with no high-grade stenosis or definite dissection seen. Vascular calcifications of the cavernous and supraclinoid ICA segments with no high-grade stenosis seen. No evidence of aneurysm along the intracranial ICA. External Carotid Artery: Unremarkable. Vertebral Artery: There is noncalcified vascular plaque seen at the origin of the left vertebral artery with no high-grade stenosis seen. The V1 through V3 segments demonstrate no definite high-grade stenosis. There is vascular calcification involving the intradural V4 segment of the left vertebral artery with abrupt occlusion of the intradural V4 segment after the left PICA takeoff (series 37, image 52). No aneurysm. Anterior Cerebral Artery: The A1 segment appears normal. There is focal moderate stenosis of the mid A2 segment of the left GAIL. There is multiple tandem segments of mild to moderate narrowing of the A3 segment of the left GAIL. Distal GAIL branches are irregular but patent. No aneurysm. Middle Cerebral Artery: There is a 4-5 mm length segment of moderate to severe narrowing of the M1 segment of the left MCA. There is 5-6 mg segment of moderate to severe narrowing of the A2 frontopolar branch of the left MCA. Irregularity of distal MCA vessels with no high-grade narrowing seen. No aneurysm. Posterior Cerebral Artery: The P1 and P2 segment appear normal. There are multiple tandem segments of mild to moderate narrowing of P3 segments of the left SASH ASSEMBLER. No aneurysm. Posterior Communicating Artery: Patent. No aneurysm. CENTRAL: Anterior Communicating Artery: Patent. No aneurysm. Basilar Artery: There is diffuse irregularity of the basilar artery with multiple tandem segments of severe narrowing of the mid and distal basilar artery. There is severe narrowing of the origin of the left SCA. There appears to be severe narrowing of the origin of the left AICA and origin of the right AICA. No aneurysm. DURAL VENOUS SINUSES AND MAJOR CENTRAL VEINS: Patent. OTHER: The visualized pharynx and larynx appear normal. The major salivary glands appear normal. Hypertrophic bilateral thyroid lobes with bilateral calcification seen within the thyroid lobes. No cervical lymphadenopathy. No necrotic lymph nodes. Soft tissues of the neck appear normal. Pleural-parenchymal scarring of the visualized lung apices. No acute fracture or traumatic subluxation. Multilevel degenerative changes. No suspicious osseous lesion seen. POST-CONTRAST HEAD: No abnormal enhancement. IMPRESSION: CT SCAN HEAD: 1. No definite acute infarct seen. If there is clinical concern for acute stroke or if symptoms persist, an MR brain could be considered to evaluate small or subtle pathology. 2. No acute intracranial hemorrhage, mass, hydrocephalus, or midline shift. No abnormal postcontrast enhancement. 3. Mild to moderate white matter changes seen that appear similar to CT head 09/27/2018 that may represent sequela of chronic small vessel ischemic disease. CT ANGIOGRAM NECK: 1. There is atherosclerotic plaque involving the left subclavian artery with area of 60-70% narrowing (series 2, image 21). 2. There is vascular plaque at the origin of the right subclavian artery with potentially up to 50% stenosis. 3. There is atherosclerotic plaque involving the carotid bifurcations and proximal cervical ICAs bilaterally with between 60-70% stenosis bilaterally, as detailed above. 4. The cervical vertebral arteries demonstrate no definite high-grade stenosis or definite dissection. CT ANGIOGRAM HEAD: 1. There is vascular plaque involving the intradural V4 segment of the left vertebral artery with abrupt termination of the V4 segment of left vertebral artery after the left PICA takeoff concerning for age-indeterminate but likely chronic occlusion. 2. There are multifocal areas of high-grade narrowing involving the basilar artery, origins of the bilateral AICAs, origins of bilateral ICAs, left MCA, bilateral ACAs, and bilateral set up technician, as detailed above. This most likely is secondary to intracranial atherosclerosis. The possibility of vasculitis, while unlikely, cannot be entirely excluded. 3. No intracranial hemorrhage seen. [facility] The call report notification system was initiated by Dr. Isrrael Haddad at 06:12 PM on 11/12/2019. The above call report findings were discussed with Leroy Lozada by Dr. Isrrael Haddad at 06:17 PM on 11/12/2019.
[2019-11-12] MEDS ORDERED: CLOPIDOGREL 300 MG TABLET PO STA (19:00)
[2019-11-12] MEDS ORDERED: RIVAROXABAN 10 MG TABLET PO STA (19:00)
[2019-11-12 20:39] VITALS: BP 169/78
== END 2019-11-12 20:45 | disposition home or self-care (01) ==
LOC: ED 15:38
DX: G45.9 Transient cerebral ischemic attack, unspecified (principal); I99.8 Other disorder of circulatory system; I10 Essential (primary) hypertension; G30.9 Alzheimer's disease, unspecified; F02.80 Dementia in other diseases classified elsewhere, unspecified severity, without behavioral disturbance, psychotic disturbance, mood disturbance, and anxiety
CPT/HCPCS: 36415; 70496; 70498; 80053; 83690; 85025; 85610; 93005; 99284; 99285; A9270; Q9967

== ENCOUNTER 2020-01-07 06:48 | Outpatient (CLI) | payer MEDICARE | END 2020-01-07 06:49 | disposition critical access hospital (66) | LOC: EMS 06:48 | PROVIDERS: ATTEND Surgery | DX: R50.9 Fever, unspecified (principal); R41.82 Altered mental status, unspecified | CPT/HCPCS: A0425; A0429 ==